=== PATIENT | male | born 1990 | race Caucasian/White ===

== ENCOUNTER 2018-07-16 15:01 | Emergency (ER) | payer OTHER ==
[~2018-07-16] VITALS: Ht 180.3 cm; Wt 84.4 kg
[2018-07-16 15:12] VITALS: BP 141/81; Ht 180.3 cm; Wt 84.4 kg
== END 2018-07-16 18:27 | disposition home or self-care (01) ==
LOC: ED 15:01
DX: S41.052A Open bite of left shoulder, initial encounter (principal); S40.212A Abrasion of left shoulder, initial encounter; W54.0XXA Bitten by dog, initial encounter; Y93.89 Activity, other specified; Y92.89 Other specified places as the place of occurrence of the external cause; Y99.8 Other external cause status
CPT/HCPCS: 90715